=== PATIENT | male | born 1950 | race Caucasian/White ===

== ENCOUNTER → 2018-04-17 17:31 | Outpatient (REF) | payer MEDICARE, SELFPAY ==
[2018-04-17 19:02] LABS: Add Manual Diff / Slide Review NO; Basophils Absolute Auto 100 /uL (0-100); Basophils Percent Auto 0.8 % (0-2); Eosinophils Absolute Auto 200 /uL (0-450); Eosinophils Percent Auto 2.7 % (2-4); Hematocrit 49.5 % (41-53); Hemoglobin 16.3 g/dL (13.5-17.5); Lymphocytes Absolute Auto 2000 /uL (1100-4500); Lymphocytes Percent Auto 28.7 % (25-40); Mean Corpuscular Volume 87.9 fL (80-100); Monocytes Absolute Auto 700 /uL (0-900); Monocytes Percent Auto 10.6 % (3-14); Neutrophils Absolute Auto 3900 /uL (1500-7000); Neutrophils Percent Auto 57.2 % (50-75); Platelet Count 216 X10^3/uL (150-400); Red Blood Cell Count 5.63 X10^6/uL (4.5-5.9); Red Cell Distribution Width 15.5 % (11.6-14.8); White Blood Cell Count 6.8 X10^3/uL (4.5-11.0)
[2018-04-17 19:08] LABS: Alanine Aminotransferase 57 IU/L (21-72); Albumin 4.1 g/dL (3.5-5.0); Albumin Globulin Ratio 1.6 (1.0-2.8); Alkaline Phosphatase 78 U/L (38-126); Aspartate Aminotransferase 43 IU/L (17-59); BUN Creatinine Ratio 35.7 (6-22); Bilirubin Total 0.6 mg/dL (0.2-1.3); Blood Urea Nitrogen 25 mg/dL (9-20); Carbon Dioxide 30 mmol/L (22-32); Chloride 99 mmol/L (98-107); Cholesterol 164 mg/dL (140-199); Estimated Glomerular Filt Rate > 60.0 mL/min (>60); Globulin 2.6 g/dL (1.7-4.1); Glucose 225 mg/dL (80-110); HDL Cholesterol 40 mg/dL (40-60); HEMOLYSIS < 15 (0-50); LDL Cholesterol Calculated 88 mg/dL (<100); Sodium 139 mmol/L (137-145); Total Protein 6.7 g/dL (6.3-8.2); Triglycerides 180 mg/dL (35-150)
[2018-04-17 19:21] LABS: Creatinine Urine Random 103.1 mg/dL
[2018-04-17 19:24] LABS: Hemoglobin A1C% w Est Avg Glu 8.4 % (4.0-6.0)
[2018-04-17 19:26] LABS: Microalbumi Creatinin Ratio Ur 12.6 ug/mg CR (<30); Microalbumin Urine Random 1.3 mg/dL (0-1.6)
[2018-04-17 19:37] LABS: Prostate Specific Antigen 0.999 ng/mL (0.10-4.00)
== END ==
LOC: LAB 17:31
PROVIDERS: Visit Provider Family Medicine Geriatric Medicine
DX: E11.65 Type 2 diabetes mellitus with hyperglycemia (principal); I10 Essential (primary) hypertension; Z12.5 Encounter for screening for malignant neoplasm of prostate
CPT/HCPCS: 36415; 80053; 80061; 82043; 82570; 83036; 84153; 85025; G0103